=== PATIENT | male | born 1950 | race Caucasian/White ===

== ENCOUNTER 2023-04-18 07:30 | Outpatient (RCR) | payer OTHER, SELFPAY ==
--- NOTE | 2023-03-12 10:50 | PT.OPEX ---
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 HE STATES, IT'S SOMETHING THAT HAS NOT BEEN RESOLVED FROM 1991 INJURY AT WORK. Pain Comments Date of Last Physician Visit 02/09/23 Current Work Status Retired Preferred Name MISAEL Objective Other/Pertinent Objective Posture Assessment: ROUNDED SHOULDER, INCREASED THORACIC KYPHOSIS LUMBAR ROM Flexion: MID BROTHESR repeated flexion: UNREMARKABLE/ INCREASED STIFFNESS Extension: LIMITED repeated ext: INCREASED MM SPASM ABOUT THE THORACIC PARASPINAL Right Sidebend: WFL Left Sidebend: WFL BLE MMT Hip flexion: 4+/5 Hip Extension: 4+/5 Hip abduction: 4+/5 knee extension: 5/5 Knee Flexion: 5 /5 Dorsiflexion/heel walk: 5/5 Plantarflexion/toe walk: 5/5 REFLEX: WNL JOINT MOBILITY/PALPATION: MOD- SEVERE HYPOMOBILITY ABOUT THE TSPINE (GREATEST T4-T10) SPECIAL TESTS Straight leg raise: (-) Crossed straight leg raise: (- ) Slump test: (-) Quadrant test: (-) SI/HIPI tests ZAIRE (-) FADIR (-) SCOUR (-) Gillet Test: (-) Standing forward bend Test: (- ) Gapping and Compression test: (-) TX: SUPINE HOOKLYING TRUNK ROTATION R/L [id number] SUPINE DKTC 3 X 15SEC BRIDGE X 10 HOLD 5 SEC SEATED THORACIC STRETCH SUPINE THORACIC MOBILIZATION WITH FOAM ROLL X 10 SUPINE THORACIC STRETCH W/ARMS OVERHEAD 3 X 15 SEC Assessment Assessment/Impression PATIENT IS A 72 YO REFERRED TO PHYSICAL THERAPY FROM DR. ARGUELLO TO EVAL AND TX DDD LUMBAR, LUMBAR RADICULAR PAIN, TSPINE HNP, AND CHRONIC PAIN. 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 HE REPORTS AN INJURY MANY YEARS AGO AT WORK A DUST COLLECTOR THAT IS STILL UNRESOLVED AND HERE FOR ON WC. HE C/O PAIN WITH PROLONGED STDG AND AMB DESPITE WORKING WITH HIS BOWFLEX AND SWIMMING IN THE POOL TO REMAIN STRONG HE CAN. HE DEMONSTRATES SIGNIFICANT THORACO KYPHOSIS AND HYPOMOBILITY ABOUT THE SAME AREA. WE APPROACHED HIS PROGRAM THROUGH MOBILIZATION AND STRENGTHENING WITH EXTENSION BIASED FOR BOTH THORACIC AND LUMBAR SPINE. HE IS PROVIDED AN HEP TO BEGIN HIS PROGRAM AND WILL REVIEW THEM NEXT VISIT FOR BODY MECHANICS AND EFFICACY. PATIENT IS APPROPRIATE FOR SKILLED PHYSICAL THERAPY TO ADDRESS SYMPTOM MGMT, MOBILIZATION, AND STRENGTHENING. HE VERBALIZED UNDERSTANDING TO ALL SKILLED INSTRUCTION AND AGREEABLE TO POC AND FREQ. Primary Functional Limitations PROLONGED STDG/AMB BENDING LIFTING IADL'S Plan of Care Rehabilitation Potential Good Physical Therapy Goals IN 6-8 WEEKS: 1. PATIENT WILL REPORT <3/10 PAIN AT REST. 2. PATIENT WILL BE ABLE TO IMPROVE STRENGTH AND TOLERANCE OF HIS THORACIC AND LUMBAR PARASPINALS TO ALLOW HIM TO PERFORM HIS IADL'S FOR THE CARE OF HIS HOME. 3. PATIENT WILL BE ABLE TO AMB 1MILE TO PARTICIPATE IN PEER AND FAMILY CENTERED ACTIVITIES . 4. PATIENT WILL BE INDEPENDENT WITH HIS HEP AND ABILITY TO PROGRESS. Coordination/Communication With Referral Source Treatment Plan/Direct Interventions Gait Training,Joint Mobilization,Manual Therapy, Therapeutic Activities, Therapeutic Exercises Frequency/Duration 1W6-8 Patient Will Be Discharged From Therapy Completion of LTG(s), Independently Progressing Discharge Plan Comments DISCHARGE TO SELF WHEN GOALS MET Evaluation Billing Untimed Code Treatment Minutes 20 PT Eval No Charge No Complexity High Certification Information Provider Signature Shows Agreement With POC & Medical Necessity Physician Signature & Date Requested Please Sign/Date Here Physician Comment/Change : Physician NPI Number #
== END 2023-05-17 13:37 | disposition home or self-care (01) ==
PROVIDERS: PCP Family Medicine; Visit Provider Family Medicine
DX: M51.37 Other intervertebral disc degeneration, lumbosacral region (principal); M54.16 Radiculopathy, lumbar region; Z51.89 Encounter for other specified aftercare
CPT/HCPCS: 97110; 97140; 97163